=== PATIENT | male | born 1990 | race Caucasian/White ===

== ENCOUNTER 2016-12-02 12:36 | Emergency (ER) | payer OTHER ==
[~2016-12-02] VITALS: Ht 188 cm; Wt 88.5 kg
[2016-12-02 13:16] VITALS: BP 134/80
[2016-12-02] MEDS ORDERED: CEPH-264 PO (13:36)
--- NOTE | 2016-12-02 13:36 | PHYS DOC ---
Past Medical History Past Medical History: No Pertinent History Past Surgical History: Other Additional Past Surgical Histo: 2 neck sx, R bicep tendon repair Alcohol Use: Rarely Drug Use: None Adult General Chief Complaint Chief Complaint: INSECT BITE [facility] HPI Patient is a 26 year old male presents to the emergency department stating that he was bit by something approximately 2 days ago in his right upper, call area. He states that he had squeezed the area and had some bloody yellow-type secretions coming from the site. He denies any fever, chills or any nausea vomiting. He states his tetanus immunization is up-to-date. Review of Systems Review of Systems Constitutional: Denies fever or chills [] Eyes: Denies change in visual acuity, redness, or eye pain [] HENT: Denies nasal congestion or sore throat [] Respiratory: Denies cough or shortness of breath [] Cardiovascular: No additional information not addressed in HPI [] GI: Denies abdominal pain, nausea, vomiting, bloody stools or diarrhea [] : Denies dysuria or hematuria [] Musculoskeletal: Denies back pain or joint pain [] Integument: Denies rash or skin lesions. Complaint of insect bite to the right upper chest/clavicle area Neurologic: Denies headache, focal weakness or sensory changes [] Endocrine: Denies polyuria or polydipsia [] Allergies Allergies Allergies Coded Allergies Type Severity Reaction Last Updated Verified No Known Drug Allergies 12/02/16 No Physical Exam Physical Exam Constitutional: Well developed, well nourished, no acute distress, non-toxic appearance. [] HENT: Normocephalic, atraumatic, bilateral external ears normal, oropharynx moist, no oral exudates, nose normal. [] Eyes: PERRLA, EOMI, conjunctiva normal, no discharge. [] Neck: Normal range of motion, no tenderness, supple, no stridor. [] Cardiovascular:Heart rate regular rhythm, no murmur [] Lungs & Thorax: Bilateral breath sounds clear to auscultation [] Skin: Warm, dry, no erythema, no rash. Patient with a dime size area to the right upper chest/clavicle area that appears to be red and slightly placed around the area. No drainage or discharge coming from the site. Back: No tenderness Extremities: No tenderness, no cyanosis, no clubbing, ROM intact, no edema. [] Neurologic: Alert and oriented X 3, normal motor function, normal sensory function, no focal deficits noted. [] Psychologic: Affect normal, judgement normal, mood normal. [] Current Patient Data Vital Signs Vital Signs Date Time Temp Pulse Resp B/P (MAP) Pulse Ox O2 Delivery O2 Flow Rate FiO2 12/02/16 13:16 98.5 63 18 100 Room Air 98.5 EKG EKG [] Radiology/Procedures Radiology/Procedures [] Course & Med Decision Making Course & Med Decision Making Pertinent Labs and Imaging studies reviewed. (See chart for details) Patient was instructed to keep the area clean and dry as well as cool to prevent increase itching. Also spoke with patient regards to keeping the area as clean as possible. Also provided the patient with inflammation to prevent infection such as good handwashing. Keep the area covered is limited straining. Medication as prescribed Tylenol or ibuprofen for pain and discomfort patient agrees with discharge instructions treatment regimens and follow-up recommendations. Since symptoms to return back to emergency department as been provided. [] Dragon Disclaimer Dragon Disclaimer This electronic medical record was generated, in whole or in part, using a voice recognition dictation system. Departure Departure Impression: Primary Impression: Insect bite Disposition: 01 HOME, SELF-CARE Condition: STABLE Referrals: NO PCP (PCP) Patient Instructions: Insect Bite, [id number] Additional Instructions: Activity as tolerated. Tylenol or ibuprofen for pain and discomfort. Clean the site with soap and water twice a day. Keep the area clean dry and cool. Antibiotics as prescribed. Follow-up to primary care physician in next 7-10 days. Return back to emergency prior signs and symptoms of become worse. Scripts Cephalexin (KEFLEX) 500 Mg Capsule 1 CAP PO BID, #20 CAP Prov: ZORAIDA OROZCO PLANER OPERATOR / GRADER 12/02/16 ZORAIDA OROZCO PLANER OPERATOR / GRADER Dec 02, 2016 13:36
== END 2016-12-02 13:40 | disposition home or self-care (01) ==
LOC: ER 12:36
DX: S20.361A Insect bite (nonvenomous) of right front wall of thorax, initial encounter (principal); W57.XXXA Bitten or stung by nonvenomous insect and other nonvenomous arthropods, initial encounter; Y93.89 Activity, other specified; Y92.89 Other specified places as the place of occurrence of the external cause; Y99.8 Other external cause status
CPT/HCPCS: 99283

== ENCOUNTER 2016-12-10 16:20 | Emergency (ER) | payer OTHER ==
[~2016-12-10] VITALS: Ht 188 cm; Wt 88.5 kg
[~2016-12-10 16:20] MED LIST: CEPH-264 PO
[2016-12-10 16:35] VITALS: BP 127/73
[2016-12-10] MEDS ORDERED: HYDROcodone/APAP 5/325MG 1 TAB TABLET PO ONE (17:45)
[2016-12-10 18:18] LABS: BILIRUBIN,URINE NEGATIVE (NEG); GLUCOSE,URINE NEGATIVE (NEG); NITRITE,URINE NEGATIVE (NEG); PROTEIN,URINE NEGATIVE (NEG-TRACE); UROBILINOGEN,URINE 0.2 mg/dL (0.2 mg/dL)
[2016-12-10 18:22] LABS: BACTERIA,URINE 0 /HPF (0-FEW); RBC,URINE OCC /HPF (0-2); WBC,URINE 0 /HPF (0-4)
--- NOTE | 2016-12-10 18:32 | RAD ---
PQRS STATEMENT: One or more of the following in the visualized dose reduction techniques were utilized for this study: 1. Automatic exposure control, 2. Adjustment of the mA and/or kV according to patient size, 3. Use of iterative reconstruction technique CT ABDOMEN/PELVIS Indication:bilateral flank pain x4days
no hx or priors Technique: Multiple contiguous axial images were obtained through the abdomen and pelvis. Coronal and sagittal reformations were created. Findings: The kidneys are normal in size. There is no evidence for hydronephrosis. There is no nephrolithiasis or ureteral calculus. Ureters are not dilated. The urinary bladder is unremarkable. The heart size is normal. The lung bases are clear.Evaluation of the abdominal viscera is limited in the absence of IV contrast. The liver and spleen are normal in size. The gallbladder is nondistended. The pancreas, and adrenal glands are within normal limits. There is no abdominopelvic ascites. Abdominal aorta is normal in caliber. .The bowel loops are normal in caliber. The appendix is normal.No destructive osseus lesions are identified. Impression: No evidence for obstructive uropathy. No ascites or inflammatory mass. Electronically signed by: Manolo Grossman MD (12/10/2016 6:29 PM) [facility]
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
[2016-12-10] MEDS ORDERED: NAPR500T8 PO (18:53)
[2016-12-10] MEDS ORDERED: CYCL10TA2 PO (18:53)
== END 2016-12-10 19:08 | disposition home or self-care (01) ==
LOC: ER 16:20
DX: G89.29 Other chronic pain (principal); M54.2 Cervicalgia; M54.5 Low back pain; M54.6 Pain in thoracic spine; Z98.890 Other specified postprocedural states
CPT/HCPCS: 74176; 81001; 99285-25

== ENCOUNTER 2017-05-20 12:39 | Emergency (ER) | payer OTHER ==
[~2017-05-20] VITALS: Ht 188 cm; Wt 88.9 kg
[~2017-05-20 12:39] MED LIST changes: +CYCL10TA2 PO; +NAPR500T8 PO
[2017-05-20 12:45] VITALS: BP 140/86
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
== END 2017-05-20 13:56 | disposition home or self-care (01) ==
LOC: ER 12:39
DX: G89.29 Other chronic pain (principal); M54.2 Cervicalgia; V43.52XA Car driver injured in collision with other type car in traffic accident, initial encounter; Y93.I9 Activity, other involving external motion; Y92.410 Unspecified street and highway as the place of occurrence of the external cause; Y99.8 Other external cause status
CPT/HCPCS: 72125; 99284-25